=== PATIENT | male | born 1995 | race Caucasian/White ===

== ENCOUNTER 2023-10-19 20:27 | Emergency (ER) | payer MEDICAID ==
[~2023-10-19] VITALS: Ht 162.6 cm; Wt 123.3 kg
[2023-10-19 22:02] VITALS: BP 109/58; PULSE 92; RESP 18; TEMP 98.2; O2SAT 97
== END 2023-10-19 22:05 | disposition home or self-care (01) ==
LOC: ER 20:27
DX: R07.89 Other chest pain (principal); F17.210 Nicotine dependence, cigarettes, uncomplicated
CPT/HCPCS: 71045; 93005; 99283

== ENCOUNTER 2024-12-21 17:46 | Inpatient (IN) | payer MEDICAID ==
[~2024-12-21] VITALS: Ht 162.6 cm; Wt 126.0 kg
[2024-12-21 18:44] LABS: MEAN PLATELET VOLUME 8.2 FL (7.4-10.4); RED CELL DISTRIBUTION WIDTH 15.0 % (11.5-14.5)
[2024-12-21 19:07] LABS: CREATININE 0.94 MG/DL (0.60-1.10); ETHANOL < 10 MG/DL (<10); TOTAL CARBON DIOXIDE 25.9 MMOL/L (24-32); eCRCL 84 ML/MIN; eGFR > 90 ML/MIN
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
[2024-12-21 19:57] LABS: LEUKOCYTE ESTERASE ,URINE NEGATIVE (Neg); NITRITES, URINE NEGATIVE (Neg); OCCULT BLOOD,URINE NEGATIVE (Neg)
[2024-12-21 20:01] LABS: UA COLLECTION TYPE CLN CATCH MIDSTREAM
[2024-12-21 20:09] LABS: URINE AMPHETAMINE SCREEN NEGATIVE (Neg); URINE BARBITUATE SCREEN NEGATIVE (Neg); URINE BENZODIAZEPINES SCREEN NEGATIVE (Neg); URINE CANNABINOID SCREEN NEGATIVE (Neg); URINE COCAINE SCREEN NEGATIVE (Neg); URINE METHADONE SCREEN NEGATIVE (Neg); URINE OPIATE SCREEN NEGATIVE (Neg); URINE PHENCYCLIDINE SCREEN NEGATIVE (Neg)
[2024-12-22] MEDS: nicotine 21mg patch - 24 hr TD SCH (08:00)
[2024-12-22] MEDS ORDERED: QUET-28 PO (11:58)
[2024-12-22] MEDS ORDERED: DIVA500T9 PO (11:58)
[2024-12-22] MEDS ORDERED: RISP-31 PO (11:58)
[2024-12-22] MEDS ORDERED: LITH300C PO (11:58)
[2024-12-22] MEDS ORDERED: RISP100S SQ (11:58)
[2024-12-22] MEDS ORDERED: BENZ1TAB78 PO (11:58)
[2024-12-22] MEDS ORDERED: SERT25TA PO (12:08)
[2024-12-22] MEDS ORDERED: QUET300T2 PO (12:22)
[2024-12-22] MEDS ORDERED: QUET400T54 PO (12:22)
[2024-12-22 13:10] VITALS: BP 115/67; PULSE 111; RESP 20; TEMP 98.1; O2SAT 96
[2024-12-22] MEDS ORDERED: NICOTINE POLACRILEX 2 MG LOZENGE BC PRN (13:45)
[2024-12-22] MEDS ORDERED: loperamide 2mg capsule PO PRN (13:45)
[2024-12-22 14:29] VITALS: RESP 16; O2SAT 98
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
[2024-12-22 19:00] VITALS: RESP 20; O2SAT 98
[2024-12-22 20:00] VITALS: BP 143/80; PULSE 85; RESP 20; TEMP 98; O2SAT 98
[2024-12-22] MEDS: benztropine 1mg tablet PO SCH (20:56)
[2024-12-22] MEDS: divalproex sod 250mg ER (24-hour) tablet PO SCH (20:57)
[2024-12-22] MEDS ORDERED: non-formulary drug (Quetiapine Fumarate (Quetiapine Fumarate ER) 1 TAB) PO SCH (21:00)
[2024-12-23 07:00] VITALS: RESP 15; O2SAT 95
[2024-12-23 07:55] LABS: CHOL/HDL RATIO 7.2 (0.00-4.99); LDL CHOLESTEROL 142 MG/DL (50-100)
[2024-12-23 08:00] VITALS: BP 136/65; PULSE 91; RESP 15; TEMP 97.9; O2SAT 95
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
[2024-12-23 19:00] VITALS: RESP 16
[2024-12-23 20:00] VITALS: BP 137/62; PULSE 112; RESP 20; TEMP 97.2; O2SAT 95
[2024-12-23 20:30] VITALS: PULSE 100
[2024-12-24 07:00] VITALS: RESP 14; O2SAT 96
[2024-12-24] MEDS: magnesium hydroxide 30ml (MOM) UD suspension PO PRN (07:47)
[2024-12-24 08:49] VITALS: BP 111/79; PULSE 79; RESP 14; TEMP 97; O2SAT 96
[2024-12-24 19:00] VITALS: RESP 18; O2SAT 98
[2024-12-24 19:10] VITALS: BP 122/85; PULSE 112; RESP 20; TEMP 98.2; O2SAT 97
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
[2024-12-25 07:00] VITALS: RESP 12; O2SAT 100
[2024-12-25 08:35] VITALS: BP 116/66; PULSE 65; RESP 12; TEMP 98.3; O2SAT 100
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
--- NOTE | 2024-12-25 15:10 | PROGRESS NOTE ---
Daily Progress Note Providers to CC ~ Antibiotic Timeout Antibiotic Ordered?: No Subjective Patient is seen in his room looks comfortable denies any concerns except for off and on pain over abdomen. Last bowel movement yesterday. No other concerns ambulating with Objective Vital Signs Date Time Temp Pulse Resp B/P (MAP) Pulse Ox O2 Delivery O2 Flow Rate FiO2 12/25/24 08:35 98.3 65 12 116/66 (83) 100 Room Air 12/23/24 19:00 0.0 Result Diagram: 12/21/24182012/21/241820 General-patient not in any acute distress, alert awake obese HEENT-atraumatic normocephalic, neck supple without elevated JVD, no thyromegaly or carotid bruit. No lymphadenopathy bilaterally. Eyes-no icterus or pallor seen in eyes Chest-clear to auscultation bilaterally, breathing nonlabored no tachypnea, no wheezing, no crepitation, no crackles. Heart-S1-S2 normal, regular heart rate no murmur Abdomen bowel sounds positive on auscultation, soft nondistended , subjective discomfort over lower abdomen palpation, no guarding, no rigidity Skin no active skin rash Neurology-grossly intact, nonfocal alert awake oriented Extremity- no pedal edema able to move all 4 extremities Psychiatry - patient is not confused or agitated cooperated during physical examination Problem\Assessment\Plan Chronic schizophrenia, chronic major depression in exacerbation associated with suicidal ideation Generalized anxiety disorder Treatment per Psychiatric team Hypertension fair control Anemia hemoglobin 12.7 Chronic tobacco abuse including currently 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
[2024-12-25 19:00] VITALS: RESP 16; O2SAT 96
[2024-12-25 19:21] VITALS: BP 112/75; PULSE 104; RESP 16; TEMP 98.2; O2SAT 96
[2024-12-26 07:00] VITALS: RESP 16; O2SAT 94
[2024-12-26 08:00] VITALS: BP 130/62; PULSE 70; RESP 16; TEMP 97.6; O2SAT 94
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
[2024-12-26 19:00] VITALS: RESP 18; O2SAT 95
[2024-12-26 20:00] VITALS: BP 133/81; PULSE 100; RESP 18; TEMP 97.9; O2SAT 95
[2024-12-27 07:00] VITALS: RESP 16; O2SAT 96
[2024-12-27 08:00] VITALS: BP 107/48; PULSE 60; RESP 16; TEMP 96.8; O2SAT 96
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
[2024-12-27] MEDS: OLANZapine 5mg rapidly disint. tablet PO ONE (15:50)
--- NOTE | 2024-12-27 17:44 | PROGRESS NOTE- Residence ---
Progress Note - Resident Providers to CC Resident Creating Document: ADELSO RICHARD, RES ~ Antibiotic Timeout Antibiotic Ordered?: No Subjective The patient has been evaluated in mental health unit. The patient denies any medical complaint. Objective Vital Signs Date Time Temp Pulse Resp B/P (MAP) Pulse Ox O2 Delivery O2 Flow Rate FiO2 12/27/24 08:00 96.8 60 16 107/48 (67) 96 Room Air 12/27/24 07:00 0.0 Physical exam: General: Awake, alert, oriented. No acute distress. Well-developed, hydrated and well-built nourished. No anemia, Jaundice or clubbing. HEENT: Conjunctive are pink, sclerae clear, no icterus, pupil is equal in both sides, reactive to light, no ear discharge, no pharyngeal erythema or an edema. Neck: Supple, no adenopathy, thyromegaly. Trachea is midline. No JVD. Chest: Respiratory: Vesicular breath sounds. No ronchi, crepitus or wheezing. Resonance is normal upon percussion of all lung becerril. Cardiovascular: S1-S2 regular sinus rhythm and, regular rate, no gallops, no rubs, no murmurs Abdomen: No visible distention, Bowel sounds present on auscultation, on palp ation: soft, nontender, no guarding, no rigidity. Extremities: No obvious deformities, no pitting edema bilaterally, capillary r efill intact, peripheral pulsations are intact on both sides Neurologic: Mental status: alert and conscious, oriented to place, person and time, preserved memory, normal speech. Cranial nerves I-XII: Normal. Motor system: Preserved power, coordination, no evidenced involuntary movements, strength 5/5 in four extremities. Skin: Warm and dry. Assessment Assessment 29-year-old male patient admitted to mental health unit due to suicidal ideation. Plan Plan Schizophrenia: Major depression disorder: Suicidal ideation: Generalized Anxiety disorder: Continue management as per Psychiatry team. Chronic tobacco abuse: Nicotine patch daily. H/O Substance use disorder: The patient has a history of use of methamphetamine. Clean for one year. Disposition: Hospitalist team will continue to monitor the patient in mental health unit. Adelso Marcial Internal Medicine Resident [facility] Date of Service: Dec 27, 2024 Billing Provider: SILVERIO KAPADIA MD Common Visit Codes: [id number] INP/OBS CARE(MOD) ADELSO RICHARD, RES Dec 27, 2024 17:44 SILVERIO KAPADIA MD Dec 28, 2024 06:54
[2024-12-27 19:00] VITALS: RESP 16; O2SAT 94
[2024-12-27 20:00] VITALS: BP 116/88; PULSE 110; RESP 16; TEMP 97.3; O2SAT 94
[2024-12-27] MEDS: QUETIAPINE 50 MG TAB.SR.24H PO SCH (20:11)
[2024-12-28 07:00] VITALS: BP 116/58; PULSE 71; RESP 18; TEMP 97.5; O2SAT 98
[2024-12-28 08:00] VITALS: RESP 18; O2SAT 98
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
[2024-12-28 20:00] VITALS: BP 127/74; PULSE 109; RESP 16; TEMP 98.2; O2SAT 96
[2024-12-29 07:20] VITALS: BP 106/65; PULSE 73; RESP 15; TEMP 97.7; O2SAT 95
[2024-12-29 07:52] VITALS: RESP 15; O2SAT 95
[2024-12-29] MEDS ORDERED: RISPERIDONE 100 MG/0.28 ML SUSER.SYR SQ SCH (13:00)
--- NOTE | 2024-12-29 15:05 | PROGRESS NOTE- Residence ---
Progress Note - Resident Providers to CC Resident Creating Document: KIRIT HUERTA, VIVIENNE ~ Antibiotic Timeout Antibiotic Ordered?: No Subjective The patient has been evaluated in mental health unit. The patient denied any new concerns or complaints. No overnight events were reported. Objective Vital Signs Date Time Temp Pulse Resp B/P (MAP) Pulse Ox O2 Delivery O2 Flow Rate FiO2 12/29/24 07:52 15 95 Room Air 12/29/24 07:20 97.7 73 106/65 (79) 12/27/24 07:00 0.0 General: Awake and Alert, no acute distress. HEENT: Conjunctiva pink, Sclera clear, Mucus Membranes moist. Neck: Supple without masses and tenderness. Resp: Unlabored. Lungs clear to auscultation bilaterally. Heart: Regular Rate and rhythm, normal S1 and S2 without murmur, rub or gallop. Abdomen: Soft and non tender no organomegaly Extremities: No cyanosis,clubbing or edema. Skin: Warm and Dry. Neurology: No focal motor or sensory deficits. Musculoskeletal: No deformities or restricted range of motion noted. Assessment Assessment 29-year-old male patient admitted to mental health unit due to suicidal ideation. Plan Plan Schizophrenia: Major depression disorder: Suicidal ideation: Generalized Anxiety disorder: Continue management as per Psychiatry team. Chronic tobacco abuse: Nicotine patch daily. H/O Substance use disorder: Patient reports he has been clean for the past one year. Disposition: Hospitalist team will continue to monitor the patient in mental health unit. Kirit Huerta MD Internal Medicine Resident, PGY-3 Date of Service: Dec 29, 2024 Billing Provider: CLINTON MONTERO MD, SURYA PRATIK, VIVIENNE Dec 29, 2024 15:05
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
[2024-12-29 20:00] VITALS: BP 131/75; PULSE 109; RESP 18; TEMP 98.2; O2SAT 95
[2024-12-30 07:00] VITALS: BP 100/62; PULSE 75; RESP 16; TEMP 97.6; O2SAT 96
[2024-12-30 08:15] VITALS: RESP 16; O2SAT 96
[2024-12-30 19:00] VITALS: RESP 20; O2SAT 95
[2024-12-30 20:00] VITALS: BP 127/68; PULSE 102; RESP 20; TEMP 99.1; O2SAT 95
[2024-12-30 20:57] VITALS: RESP 20; O2SAT 95
[2024-12-31 07:00] VITALS: RESP 16; O2SAT 96
[2024-12-31 08:00] VITALS: BP 123/59; PULSE 72; RESP 18; TEMP 97.2; O2SAT 96
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
[2024-12-31] MEDS: mag hydrox/Alum hydrox/simeth 30ml oral suspension PO PRN (14:58)
--- NOTE | 2024-12-31 15:27 | PROGRESS NOTE ---
Daily Progress Note Providers to CC ~ Antibiotic Timeout Antibiotic Ordered?: No Subjective This is the hospitalist progress note on patients hospitalized at [facility]/ [facility] [facility]. The patient has no acute medical complaints or concerns and none were voiced by nursing staff. The patient was asking me about receiving an injection early that his mom was requesting this I informed him that this would have to be addressed with the psychiatric provider. Objective Vital Signs Date Time Temp Pulse Resp B/P (MAP) Pulse Ox O2 Delivery O2 Flow Rate FiO2 12/31/24 08:00 97.2 72 18 123/59 (80) 96 Room Air 12/27/24 07:00 0.0 Gen. No acute distress alert and oriented, morbidly obese Lungs clear to ascultation bilaterally, no wheezes rales or rhonchi appreciated Heart normal sinus rhythm no murmurs rubs or clicks noted Abdomen soft nontender bowel sounds are normoactive Lower extremities no clubbing cyanosis, nor edema appreciated bilaterally Problem\Assessment\Plan Chronic schizophrenia, chronic major depression in exacerbation associated with suicidal ideation Generalized anxiety disorder Treatment per Psychiatric team Hypertension under good control Hyperlipidemia- start atorvastatin 40 mg daily Anemia hemoglobin 12.7 Chronic tobacco abuse including currently- on nicotine replacement therapy 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
[2024-12-31 19:00] VITALS: RESP 16; O2SAT 96
[2024-12-31 20:00] VITALS: BP 134/86; PULSE 118; RESP 18; TEMP 97.7; O2SAT 96
[2025-01-01 07:00] VITALS: RESP 16; O2SAT 96
[2025-01-01 08:07] VITALS: BP 127/39; PULSE 77; RESP 16; TEMP 97.6; O2SAT 98
--- NOTE | 2025-01-01 14:45 | ELECTROCARDIOGRAPH REPORT ---
[facility] Test Date: 2025-01-01 Test Time: 14:42:54 Pat Name: MUNDO JASON Department: [facility] Patient ID: [facility]-[id number] Room: 322 B Gender: M Naturalist: FARZANA : 1995 Requested By: SERGIO ZIMMER Order Number: [id number] Reading MD: Dr. Ricardo Butt Measurements Intervals [place] Rate: 100 P: 60 WV: 142 QRS: 58 QRSD: 93 T: 56 QT: 332 QTc: 429 Interpretive Statements Sinus tachycardia Electronically Signed On 01-01-2025 15:28:[address] Ricardo Butt Please click the below link to view image of tracing.
[2025-01-01 19:00] VITALS: RESP 17; O2SAT 99
[2025-01-01 20:00] VITALS: BP 148/85; PULSE 116; RESP 17; TEMP 98.6; O2SAT 99
[2025-01-01] MEDS ORDERED: QUETIAPINE 150 MG TAB.SR.24H PO SCH (21:00)
[2025-01-01] MEDS ORDERED: QUETIAPINE 50 MG TAB.SR.24H PO SCH (21:00)
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
[2025-01-01] MEDS: benztropine 1mg tablet PO SCH (21:13)
[2025-01-02 07:00] VITALS: RESP 16; O2SAT 96
[2025-01-02 08:35] VITALS: BP 99/57; PULSE 73; RESP 16; O2SAT 98
[2025-01-02 14:50] LABS: MEAN PLATELET VOLUME 8.5 FL (7.4-10.4); RED CELL DISTRIBUTION WIDTH 14.8 % (11.5-14.5)
[2025-01-02 15:06] LABS: CREATININE 0.87 MG/DL (0.60-1.10); TOTAL CARBON DIOXIDE 25.3 MMOL/L (24-32); eCRCL 103 ML/MIN; eGFR > 90 ML/MIN
--- NOTE | 2025-01-02 15:17 | RADIOLOGY REPORT ---
Exam: CT CT ABDOMEN PELVIS History: abdominal pain with ambulation Comparison Study: None TECHNIQUE: Multidetector CT of the abdomen was performed from lung bases to pubic symphysis. Imaging was performed without IV contrast. Axial, coronal and sagittal multiplanar reformats were obtained from the axial data set by the technologist. Radiation Dose Information: Dose-length product is 1950 mGy*cm FINDINGS: Limited sections of the lung bases demonstrate no focal pulmonary mass. The liver, spleen, pancreas, and both adrenal glands demonstrate no acute findings. Hepatic steatosis. The gallbladder is unremarkable. The stomach is unremarkable. The small bowel loops are not dilated. The appendix is normal. No colonic obstruction. Bilateral kidneys are unremarkable. No hydronephrosis. Mild thickening of the urinary bladder wall which may reflect cystitis versus partial nondistention; consider correlation with urinalysis. Prominent mesenteric lymph nodes with mesenteric stranding may reflect panniculitis. No free air or free fluid. The aorta and IVC demonstrate no acute findings. Visualized osseous structures demonstrate no acute abnormality. IMPRESSION: 1. Limited evaluation in the absence of IV contrast. 2. Prominent mesenteric lymph nodes with mesenteric stranding may reflect panniculitis. 3. Mild thickening of the urinary bladder wall which may reflect cystitis versus partial nondistention; consider correlation with urinalysis.
--- NOTE | 2025-01-02 18:15 | PROGRESS NOTE ---
Daily Progress Note Providers to CC ~ Antibiotic Timeout Antibiotic Ordered?: No Subjective This is the hospitalist progress note on patients hospitalized at [facility] psychiatric [facility]/ [facility]. The patient complains of significant discomfort when my belly jigles when I walk and move" the patient's last bowel movement was yesterday per nursing staff the patient is afebrile and has a normal white blood cell count. I did order a noncontrast CT scan of the abdomen and pelvis. The patient has not no other complaints Objective Vital Signs Date Time Temp Pulse Resp B/P (MAP) Pulse Ox O2 Delivery O2 Flow Rate FiO2 01/02/25 08:35 73 16 99/57 (71) 98 Room Air 01/01/25 20:00 98.6 Result Diagram: 01/02/25 1431 01/02/25 1431 Gen. No acute distress alert and oriented, morbidly obese Lungs clear to ascultation bilaterally, no wheezes rales or rhonchi appreciated Heart normal sinus rhythm no murmurs rubs or clicks noted Abdomen soft nontender bowel sounds are normoactive, no erythema of the abdomenal wall appreciated. Lower extremities no clubbing cyanosis, nor edema appreciated bilaterally Problem\\Assessment\\Plan Chronic schizophrenia, chronic major depression in exacerbation associated with suicidal ideation Generalized anxiety disorder Treatment per Psychiatric team Hypertension under good control Hyperlipidemia- start atorvastatin 40 mg daily Anemia hemoglobin 12.7 Chronic tobacco abuse including currently- on nicotine replacement therapy History of substance use disorder methamphetamine clean for the last one year Morbid obesity BMI 47, weight loss recommended Significant abdominal discomfort with movement. Noncontrast CT scan abdomen and pelvis demonstrated a possible panniculitis however and that has no erythema of the abdominal wall or abdominal striae or under the pannus. CT scan also demonstrated mild thickening of the urinary bladder which may reflect partial nondistention versus a cystitis have for the patient denies any dysuria. Additional comorbidities,palpitations, GERD Hospitalist service will continue to follow the patient while hospitalized at [facility]. Date of Service: Jan 02, 2025 Billing Provider: DANIELA EMANUEL DO Common Visit Codes: [id number] INP/OBS CARE(MOD) DANIELA EMANUEL DO Jan 02, 2025 18:15
[2025-01-02 19:00] VITALS: RESP 18; O2SAT 96
[2025-01-02 20:00] VITALS: BP 125/65; PULSE 103; RESP 18; TEMP 98.2; O2SAT 96
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
[2025-01-02] MEDS: pantoprazole 40mg Tablet.DR PO ONE (21:47)
[2025-01-03 07:00] VITALS: RESP 14; O2SAT 96
[2025-01-03 08:00] VITALS: BP 129/62; PULSE 81; RESP 14; TEMP 97.8; O2SAT 96
[2025-01-03 19:00] VITALS: RESP 20; O2SAT 96
[2025-01-03 20:00] VITALS: BP 132/72; PULSE 95; RESP 20; TEMP 97.8; O2SAT 96
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
[2025-01-04 07:00] VITALS: RESP 16; O2SAT 96
[2025-01-04 07:31] VITALS: BP 113/58; PULSE 76; RESP 16; TEMP 98.4; O2SAT 96
[2025-01-04] MEDS ORDERED: RISPERIDONE 125 MG/0.35 ML SUSER.SYR SQ ONE (08:00)
[2025-01-04] MEDS ORDERED: RISPERIDONE 100 MG/0.28 ML SUSER.SYR SQ ONE (10:00)
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
[2025-01-04] MEDS ORDERED: LITH300C PO (10:23)
[2025-01-04] MEDS ORDERED: SERT25TA PO (10:23)
[2025-01-04] MEDS ORDERED: QUET300T91 PO (10:23)
[2025-01-04] MEDS ORDERED: DIVA500T9 PO (10:23)
[2025-01-04] MEDS ORDERED: RISP0.5T74 PO (10:23)
[2025-01-04] MEDS ORDERED: ATOR20TA66 PO (10:23)
[2025-01-04] MEDS: RISPERIDONE 100 MG/0.28 ML SUSER.SYR SQ ONE (11:43)
[2025-01-16] MEDS ORDERED: RISPERIDONE 100 MG/0.28 ML SUSER.SYR SQ SCH (08:00)
== END 2025-01-04 14:10 | disposition home or self-care (01) | DRG 750 ==
LOC: ER 17:46 → ADULT MH 12-22 11:40 → UNDOADMIN 12-22 11:40 → ADULT MH 12-22 13:10
PROVIDERS: ADMIT Psychiatry & Neurology Psychiatry; ATTEND Psychiatry & Neurology Psychiatry
PROC: GZHZZZZ Group Psychotherapy (ICD-10-PCS; principal; 2024-12-22)
PROC: GZ51ZZZ Individual Psychotherapy, Behavioral (ICD-10-PCS; 2024-12-22)
DX: F20.9 Schizophrenia, unspecified (principal); R45.851 Suicidal ideations; E66.01 Morbid (severe) obesity due to excess calories; I10 Essential (primary) hypertension; F33.9 Major depressive disorder, recurrent, unspecified; F15.10 Other stimulant abuse, uncomplicated; D64.9 Anemia, unspecified; Z20.822 Contact with and (suspected) exposure to COVID-19; E78.5 Hyperlipidemia, unspecified; F41.1 Generalized anxiety disorder; Z68.42 Body mass index [BMI] 45.0-49.9, adult; G89.29 Other chronic pain; K21.9 Gastro-esophageal reflux disease without esophagitis; F17.210 Nicotine dependence, cigarettes, uncomplicated; Z79.899 Other long term (current) drug therapy
CPT/HCPCS: 36415; 70450; 74176; 80048; 80053; 80061; 80164; 80178; 80305; 80320; 81003; 82248; 84146; 84443; 85025; 87081; 87811; 93005; 99285; Q0161; Q0177